=== PATIENT | male | born 1995 | race Hispanic/Latino ===

== ENCOUNTER 2020-12-04 09:42 | Emergency (ER) | payer SELFPAY ==
[~2020-12-04] VITALS: Ht 175.3 cm; Wt 101.6 kg
[2020-12-04 10:32] VITALS: BP 134/86
[2020-12-04] MEDS ORDERED: TYLENOL # 31 EA PO ×2 (12:02→12:07)
[2020-12-04] MEDS ORDERED: NAPROSYN500 MG PO (12:05)
[2020-12-04] MEDS ORDERED: CYCLOBENZAPRINE10 MG PO (12:06)
== END 2020-12-04 12:20 | disposition home or self-care (01) ==
LOC: FSED 10:00
DX: S39.012A Strain of muscle, fascia and tendon of lower back, initial encounter (principal); X50.0XXA Overexertion from strenuous movement or load, initial encounter; E11.65 Type 2 diabetes mellitus with hyperglycemia
CPT/HCPCS: 36415; 72110; 82948; 99284